=== PATIENT | male | born 1970 | race Caucasian/White ===

== ENCOUNTER → 2018-03-10 | Emergency (ER) | payer OTHER ==
[~2018-03-10] VITALS: Ht 175.3 cm; Wt 90.7 kg
[~2018-03-10] MED LIST: OMEPRAZOLE20 MG PO; ZANTAC300 MG PO
== END | disposition home or self-care (01) ==
LOC: ER 17:35
DX: K21.9 Gastro-esophageal reflux disease without esophagitis (principal)